=== PATIENT | female | born 1975 | race Caucasian/White ===

== ENCOUNTER 2017-03-23 13:33 | Inpatient (IN) | payer MEDICARE, MEDICAID ==
[~2017-03-23] VITALS: Ht 170.2 cm; Wt 85.8 kg
[2017-03-23] VITALS (9 sets, daily range): BP systolic 85–134; BP diastolic 61–84
[2017-03-23] MEDS ORDERED: LORazepam INJ 2 MG/ML (ATIVAN) VIAL ONE (15:20)
[2017-03-23] MEDS ORDERED: LORazepam INJ 2 MG/ML (ATIVAN) VIAL IV ONE (15:45)
[2017-03-23] MEDS ORDERED: LORazepam INJ 2 MG/ML (ATIVAN) VIAL IV PRN (16:00)
[2017-03-23] MEDS ORDERED: CATHETER FLUSH 10 ML SYR IV PRN (16:00)
[2017-03-23 16:01] LABS: AMPHETAMINE SCREEN, URINE NEGATIVE (NEGATIVE); BARBITURATE SCREEN URINE POSITIVE (NEGATIVE); BENZODIAZEPINES SCREEN URINE NEGATIVE (NEGATIVE); CANNABINOID SCREEN, URINE NEGATIVE (NEGATIVE); COCAINE SCREEN URINE NEGATIVE (NEGATIVE); METHADONE STAT NEGATIVE (NEGATIVE); METHAMPHETAMINE SCREEN URINE S NEGATIVE (NEGATIVE); OPIATE SCREEN URINE NEGATIVE (NEGATIVE); OXYCODONE STAT NEGATIVE (NEGATIVE); PROPOXYPHENE STAT NEGATIVE (NEGATIVE); TRICYCLIC ANTIDEPRESSANTS SCRE NEGATIVE (NEGATIVE)
[2017-03-23] MEDS: NS IV 1000 ML 1,000 ML IV SCH (16:04)
[2017-03-23] MEDS ORDERED: CYCL10TA9 PO (16:05)
[2017-03-23] MEDS ORDERED: MONT10TA21 PO (16:05)
[2017-03-23] MEDS ORDERED: IBUP-1779 PO (16:05)
[2017-03-23] MEDS ORDERED: TRAM50TA2 PO (16:05)
[2017-03-23] MEDS ORDERED: OMEP20TA7 PO (16:05)
[2017-03-23] MEDS ORDERED: DIVA250T2 PO (16:05)
--- NOTE | 2017-03-23 16:25 | History & Physical-Hospitalist ---
HPI History of Present Illness: HPI/Chief Complaint Mrs. Carreon is a 41-year-old white female with a long history of epilepsy who apparently had 2 seizures at home witnessed by her boyfriend. She was brought to the [facility] emergency room where she had another seizure. She apparently had gone to the emergency room a week ago with complaints of back pain. She was given tramadol. She states that she had been taking her valproic acid her only seizure medicine but on return of drug level there was unmeasurable amounts in her system. She had another seizure in the emergency room in [place] and was loaded with Dilantin. Apparently that seizure ceased but before there was recovery she had another seizure in route. She was given 2 mg of Ativan IV upon arrival here. Her seizure ceased effort unknown length of time and upon my arrival she was sedate but easily arousable answering questions appropriately moving all extremities and asking for food. She denies any illicit drug use. Urine drug screen obtained here was positive for barbiturates but no other substances. It was obtained around the same time that her IV Ativan was given still negative for benzodiazepine. She reports no other admissions for her generalized seizure disorder which she states started around the age of 4. She recently moved from [place] and had been seen several times apparently in the community health clinic in [place] but did not reportedly have a primary care provider or neurologist. [facility] were on diversion so she was transferred to our facility. Date Seen 03/23/17 Time Seen by Provider: 03:45 Attending Physician Therese Figueroa MD PCP Referring Physician Date of Admission Mar 23, 2017 at 14:45 Home Medications & Allergies Home Medications Reviewed patient Home Medication Reconciliation Form Allergies Allergies Coded Allergies codeine (Verified Allergy, Unknown, 03/23/17) Review of Systems Constitutional: no symptoms reported Respiratory: cough, phlegm (javier in color) Physical Exam Physical Exam Vital Signs Vital Sign - Last 12Hours 03/23/17 03/23/17 14:53 14:55 Temp 97.6 Pulse 109 Resp 10 B/P (MAP) 134/84 (101) Pulse Ox 98 O2 Delivery Room Air Capillary Refill : General Appearance: No Apparent Distress Eyes: Bilateral Eye PERRL Neck: Full Range of Motion, Normal Inspection, Non Tender, Supple, Carotid Bruit Respiratory: Chest Non Tender, Lungs Clear, Normal Breath Sounds, No Accessory Muscle Use, No Respiratory Distress Cardiovascular: Regular Rate, Rhythm, No Edema, No Gallop, No JVD, No Murmur, Normal Peripheral Pulses Gastrointestinal: Normal Bowel Sounds, No Organomegaly, No Pulsatile Mass, Non Tender, Soft Extremity: Normal Inspection, Normal Range of Motion, Non Tender, No Calf Tenderness, No Pedal Edema Neurologic/Psychiatric: Other (patient sedated but does arouse easily and answers questions appropriately. She moves all extremities with no sensory deficit. She does have some nystagmus no motor activity noted during the interview.) Skin: Normal Color, Warm/Dry Assessment/Plan Admission Diagnosis 1. Status epilepticus currently improved following IV Ativan. Triggering events include medication noncompliance and possible tramadol's effect on lowering seizure threshold. Patient has been loaded with Dilantin will resume her by mouth Depakote and continue to monitor in the ICU overnight with when necessary lorazepam as needed. 2. History of generalized seizure disorder/epilepsy which the patient states dates back to the age of 4. We'll be recommending neurology follow-up as an outpatient post discharge. In regards to her current metabolic workup CBC and chemistry panel were unremarkable except for mildly elevated blood sugar in the 130 range. Patient states she is a diabetic but is diet controlled on no medication. When more awake and alert will initiate 1500-calorie ADA diet. A magnesium level is pending at the time of this dictation. THERESE FIGUEROA MD Mar 23, 2017 16:25
[2017-03-23] MEDS ORDERED: DIVALPROEX 500 MG DELAYED RELEASE (DEPAKOTE) TAB PO NR (17:00)
--- NOTE | 2017-03-23 18:10 | Diagnostic Imaging Report ---
INDICATION: Productive cough. Portable chest at 05:14 p.m. FINDINGS: Heart size and pulmonary vascularity are normal. Lungs are clear. There are no effusions or pneumothoraces. IMPRESSION: Negative chest Dictated by: Dictated on workstation # [id number]
[2017-03-23 20:02] LABS: BILIRUBIN,URINE NEGATIVE (NEGATIVE); CLARITY,URINE CLEAR; COLOR,URINE YELLOW; GLUCOSE, URINE (UA) NEGATIVE (NEGATIVE); KETONES,URINE NEGATIVE (NEGATIVE); LEUKOCYTE ESTERASE ,URINE NEGATIVE (NEGATIVE); NITRITE,URINE NEGATIVE (NEGATIVE); PH,URINE 8 (5-9); PROTEIN,URINE NEGATIVE (NEGATIVE); UROBILINOGEN,URINE NORMAL (NORMAL)
[2017-03-23 20:10] LABS: BACTERIA,URINE NEGATIVE /HPF; WBC,URINE RARE /HPF
[2017-03-24] VITALS (9 sets, daily range): BP systolic 92–115; BP diastolic 61–76
[2017-03-24] MEDS: NS IV 1000 ML 1,000 ML IV SCH (01:54)
[2017-03-24] MEDS ORDERED: DIVALPROEX 500 MG DELAYED RELEASE (DEPAKOTE) TAB PO SCH (06:00)
[2017-03-24] MEDS ORDERED: DIVA500T PO (08:18)
--- NOTE | 2017-03-24 12:08 | Discharge Summary-Hospitalist ---
Diagnosis/Chief Complaint Date of Admission Mar 23, 2017 at 14:45 Date of Discharge Discharge Date: Mar 24, 2017 Admission Diagnosis 1. Status epilepticus currently improved following IV Ativan. Triggering events include medication noncompliance and possible tramadol's effect on lowering seizure threshold. Patient has been loaded with Dilantin will resume her by mouth Depakote and continue to monitor in the ICU overnight with when necessary lorazepam as needed. 2. History of generalized seizure disorder/epilepsy which the patient states dates back to the age of 4. We'll be recommending neurology follow-up as an outpatient post discharge. In regards to her current metabolic workup CBC and chemistry panel were unremarkable except for mildly elevated blood sugar in the 130 range. Patient states she is a diabetic but is diet controlled on no medication. When more awake and alert will initiate 1500-calorie ADA diet. A magnesium level is pending at the time of this dictation. Discharge Diagnosis as per admission diagnosis Discharge Summary Discharge Physical Examination Allergies: Coded Allergies: codeine (Verified Allergy, Unknown, 03/23/17) Vitals & I&Os Vital Signs Date Time Temp Pulse Resp B/P (MAP) Pulse Ox O2 Delivery O2 Flow Rate FiO2 03/24/17 08:25 96 Room Air 03/24/17 08:00 97.8 82 16 104/76 (85) Hospital Course Mrs. Carreon was admitted in status epilepticus to our intensive care unit. She received 2 mg of Ativan IV with termination of her seizure activity. Her Depakote level returned and was unmeasurable. This in addition to recent tramadol use was a likely severe her generalized seizure flare. Depakote was resumed at a higher dose than her baseline thousand milligrams twice a day. She had no further seizure activity and and was back to baseline mental status by the morning of the . Discussed the importance of medication compliance and following up with community health with ultimate neurology referral to follow her long-standing history of epilepsy she's states dates back to the age of 4. Urine drug screen was obtained and positive only for barbiturates with the patient reporting no history of illicit or prescribed barbiturate usage. She denies Fiorinal or Fioricet usage as well. She was advised to abstain from driving in the interim timing ladders or circumstances where she would be at increased risk for injury should seizure activity recur. Labs (last 24 hrs) Laboratory Tests 03/23/17 15:38: Urine Color YELLOW, Urine Clarity CLEAR, Urine pH 8, Urine Specific [place] 1.010L, Urine Protein NEGATIVE, Urine Glucose (UA) NEGATIVE, Urine Ketones NEGATIVE, Urine Nitrite NEGATIVE, Urine Bilirubin NEGATIVE, Urine Urobilinogen NORMAL, Urine Leukocyte Esterase NEGATIVE, Urine RBC (Auto) 1+H, Urine RBC 2-5H , Urine WBC RARE, Urine Crystals NONE, Urine Bacteria NEGATIVE, Urine Casts NONE , Urine Mucus NEGATIVE, Urine Culture Indicated NO, Urine Opiates Screen NEGATIVE, Urine Oxycodone Screen NEGATIVE, Urine Methadone Screen NEGATIVE, Urine Propoxyphene Screen NEGATIVE, Urine Barbiturates Screen POSITIVEH, Ur Tricyclic Antidepressants Screen NEGATIVE, Urine Phencyclidine Screen NEGATIVE, Urine Amphetamines Screen NEGATIVE, Urine Methamphetamines Screen NEGATIVE, Urine Benzodiazepines Screen NEGATIVE, Urine Cocaine Screen NEGATIVE, Urine Cannabinoids Screen NEGATIVE 03/23/17 16:04: Magnesium Level 1.9 03/24/17 03:08: Discharge Home Medications: Active Scripts Active Depakote (Divalproex Sodium) 500 Mg Tablet. 1,000 Mg PO BID 60 Days Reported Omeprazole 20 Mg Tablet.dr 20 Mg PO DAILY Cyclobenzaprine HCl 10 Mg Tablet 10 Mg PO TID PRN Ibuprofen 400 Mg Tablet 800 Mg PO Q8H PRN Singulair (Montelukast Sodium) 10 Mg Tablet 10 Mg PO HS Instructions to patient/family Please see electronic discharge instructions given to patient. Clinical Quality Measures DVT/VTE Risk/Contraindication: RFS Level Per Nursing on Admit: 1=Low/No VTE PPX THERESE FIGUEROA MD Mar 24, 2017 12:08
== END 2017-03-24 12:55 | disposition home or self-care (01) | DRG 101 ==
LOC: ICU 14:45
PROVIDERS: ADMIT Internal Medicine; ATTEND Internal Medicine
DX: G40.301 Generalized idiopathic epilepsy and epileptic syndromes, not intractable, with status epilepticus (principal)
CPT/HCPCS: 36415; 71045; 80185; 80306; 81000; 83735; 87081

== ENCOUNTER 2017-12-04 22:33 | Day surgery (SDC) | payer MEDICARE, MEDICAID ==
[~2017-12-04] VITALS: Ht 162.6 cm; Wt 84.2 kg
[~2017-12-04 22:33] MED LIST: CYCL10TA9 PO; DIVA250T2 PO; DIVA500T PO; IBUP-1779 PO; MONT10TA21 PO; OMEP20TA7 PO; TRAM50TA2 PO
[2017-12-04] MEDS ORDERED: NS IV 1000 ML 1,000 ML IV SCH (22:39)
--- NOTE | 2017-12-04 22:43 | ED Abdominal Pain ---
General Stated Complaint: ABD PAIN Source of Information: Patient Exam Limitations: No Limitations History of Present Illness Date Seen by Provider: Dec 04, 2017 Time Seen by Provider: 22:36 Initial Comments Patient presents to ER by EMS from [place], [place] with chief complaint that in the last week or so she's been having this abdominal pain in her right upper quadrant and he was diagnosed to have biliary colic with stones. She had face with oil tonight for dinner and about 9:00, 1-1/2 hours ago she started having severe unbearable pain. She has not taken anything for it. She's not having any nausea fevers or chills. She went to the ER a few days ago for the pain and was told that she did have her gallbladder out. She already has an appointment with surgeon Dr. Coppola on the . She does not think she can make it that far. She rates the pain now as a 10 out of 10 nonradiating right upper quadrant sharp , severe. Allergies and Home Medications Allergies Coded Allergies: codeine (Verified Allergy, Unknown, 03/23/17) Home Medications Cyclobenzaprine HCl 10 Mg Tablet, 10 MG PO TID PRN for SPASMS, (Reported) Divalproex Sodium 500 Mg Tablet.dr, 1,000 MG PO BID Prescribed by: THERESE FIGUEROA on 03/24/17 0818 Ibuprofen 400 Mg Tablet, 800 MG PO Q8H PRN for PAIN-MILD, (Reported) Montelukast Sodium 10 Mg Tablet, 10 MG PO HS, (Reported) Omeprazole 20 Mg Tablet.dr, 20 MG PO DAILY, (Reported) Patient Home Medication List Home Medication List Reviewed: Yes Review of Systems Review of Systems Constitutional: No chills, No diaphoresis EENTM: No Blurred Vision, No Double Vision Respiratory: Denies Cough, Denies Orthopnea Cardiovascular: Denies Chest Pain, Denies Edema Gastrointestinal: Denies Abdomen Distended; Abdominal Pain; Denies Blood Streaked Stools, Denies Constipated, Denies Diarrhea, Denies Nausea Genitourinary: Denies Burning, Denies Discharge, Denies Drainage Past Hwarwmd-Urhltv-Dvtxpt Hx Patient Social History Alcohol Use: Denies Use Recreational Drug Use: No Smoking Status: Never a Smoker Recent Hopitalizations: No Immunizations Up To Date Date of Influenza Vaccine: Nov 08, 2016 Seasonal Allergies Seasonal Allergies: Yes Past Medical History Surgeries: Yes Respiratory: No Cardiac: No Neurological: Yes Female Reproductive Disorders: Denies Sexually Transmitted Disease: No HIV/AIDS: No Genitourinary: No Gastrointestinal: Yes (Peptic Ulcer disease) Ulcer Musculoskeletal: Yes Chronic Back Pain Endocrine: Yes HEENT: No Cancer: No Psychosocial: No Integumentary: No Blood Disorders: No Physical Exam Vital Signs Vital Signs - First Documented 12/04/17 22:35 Temp 98.9 Pulse 93 Resp 17 B/P (MAP) 138/92 (107) Capillary Refill : Height/Weight/BMI Height: 5'7.00" Weight: 189lbs. 2.0oz. 85.828308yi; 25.0 BMI Method: General Appearance: WD/WN, no apparent distress HEENT: PERRL/EOMI, normal ENT inspection, pharynx normal Neck: non-tender, normal inspection Respiratory: chest non-tender, lungs clear, normal breath sounds, no respiratory distress, no accessory muscle use Cardiovascular: normal peripheral pulses, regular rate, rhythm Peripheral Pulses: 2+ Radial Pulses (R), 2+ Radial Pulses (L) Gastrointestinal: normal bowel sounds, tenderness (midepigastric) Neurologic/Psychiatric: alert, normal mood/affect, oriented x 3 Progress/Results/Core Measures Results/Orders Lab Results Laboratory Tests Test 12/04/17 22:38 12/04/17 23:02 Range/Units White Blood Count 10.8 4.3-11.0 10^3/uL Red Blood Count 4.59 4.35-5.85 10^6/uL Hemoglobin 14.3 11.5-16.0 G/DL Hematocrit 41 35-52 % Mean Corpuscular Volume 89 80-99 FL Mean Corpuscular Hemoglobin 31 25-34 PG Mean Corpuscular Hemoglobin Concent 35 32-36 G/DL Red Cell Distribution Width 13.3 10.0-14.5 % Platelet Count 247 130-400 10^3/uL Mean Platelet Volume 10.7 H 7.4-10.4 FL Neutrophils (%) (Auto) 47 42-75 % Lymphocytes (%) (Auto) 34 12-44 % Monocytes (%) (Auto) 11 0-12 % Eosinophils (%) (Auto) 7 0-10 % Basophils (%) (Auto) 1 0-10 % Neutrophils # (Auto) 5.1 1.8-7.8 X 10^3 Lymphocytes # (Auto) 3.7 1.0-4.0 X 10^3 Monocytes # (Auto) 1.2 H 0.0-1.0 X 10^3 Eosinophils # (Auto) 0.8 H 0.0-0.3 10^3/uL Basophils # (Auto) 0.1 0.0-0.1 10^3/uL Sodium Level 139 135-145 MMOL/L Potassium Level 3.9 3.6-5.0 MMOL/L Chloride Level 101 98-107 MMOL/L Carbon Dioxide Level 27 21-32 MMOL/L Anion Gap 11 5-14 MMOL/L Blood Urea Nitrogen 15 7-18 MG/DL Creatinine 1.13 0.60-1.30 MG/DL Estimat Glomerular Filtration Rate 53 BUN/Creatinine Ratio 13 Glucose Level 154 H 70-105 MG/DL Calcium Level 9.5 8.5-10.1 MG/DL Corrected Calcium 9.3 8.5-10.1 MG/DL Total Bilirubin 1.2 H 0.1-1.0 MG/DL Aspartate Amino Transf (AST/SGOT) 325 H 5-34 U/L Alanine Aminotransferase (ALT/SGPT) 695 H 0-55 U/L Alkaline Phosphatase 170 H 40-136 U/L Total Protein 7.2 6.4-8.2 GM/DL Albumin 4.2 3.2-4.5 GM/DL Lipase 136 H 8-78 U/L Serum Test, Qualitative NEGATIVE NEGATIVE Urine Color AYANNA H Urine Clarity SLIGHTLY CLOUDY Urine pH 5 5-9 Urine Specific [place] 1.025 H 1.016-1.022 Urine Protein 2+ H NEGATIVE Urine Glucose (UA) NEGATIVE NEGATIVE Urine Ketones NEGATIVE NEGATIVE Urine Nitrite NEGATIVE NEGATIVE Urine Bilirubin 1+ H NEGATIVE Urine Urobilinogen 8 H NORMAL MG/DL Urine Leukocyte Esterase 1+ H NEGATIVE Urine RBC (Auto) 2+ H NEGATIVE Urine RBC 0-2 /HPF Urine WBC 5-10 H /HPF Urine Squamous Epithelial Cells 10-25 H /HPF Urine Crystals NONE /LPF Urine Bacteria MODERATE H /HPF Urine Casts NONE /LPF Urine Mucus MODERATE H /LPF Urine Culture Indicated YES Urine Opiates Screen POSITIVE H NEGATIVE Urine Oxycodone Screen NEGATIVE NEGATIVE Urine Methadone Screen NEGATIVE NEGATIVE Urine Propoxyphene Screen NEGATIVE NEGATIVE Urine Barbiturates Screen NEGATIVE NEGATIVE Ur Tricyclic Antidepressants Screen NEGATIVE NEGATIVE Urine Phencyclidine Screen NEGATIVE NEGATIVE Urine Amphetamines Screen NEGATIVE NEGATIVE Urine Methamphetamines Screen NEGATIVE NEGATIVE Urine Benzodiazepines Screen NEGATIVE NEGATIVE Urine Cocaine Screen NEGATIVE NEGATIVE Urine Cannabinoids Screen NEGATIVE NEGATIVE My Orders Orders - ORLANDO CARRILLO Ct Abdomen/Pelvis W (12/04/17 22:39) Saline Lock/Iv-Start (12/04/17 22:39) Cbc With Automated Diff (12/04/17 22:39) Comprehensive Metabolic Panel (12/04/17 22:39) Drug Screen Stat (Urine) (12/04/17 22:39) Hcg,Qualitative Serum (12/04/17 22:39) Lipase (12/04/17 22:39) Ua Culture If Indicated (12/04/17 22:39) Saline Lock/Iv-Start (12/04/17 22:39) Ns Iv 1000 Ml (Sodium Chloride 0.9%) (12/04/17 22:39) Ketorolac Injection (Toradol Injection) (12/04/17 22:45) Iohexol Injection (Omnipaque 350 Mg/Ml 1 (12/04/17 23:30) Ns (Ivpb) (Sodium Chloride 0.9%) (12/04/17 23:30) Urine Culture (12/04/17 23:02) Fentanyl Injection (Sublimaze Injection (12/05/17 01:07) Medications Given in ED Current Medications Medications Dose Ordered Sig/Flower Route Start Time Stop Time Status Last Admin Dose Admin Iohexol 100 ml ONCE ONCE IV 12/04/17 23:30 12/05/17 00:30 DC 12/04/17 23:29 100 ML Ketorolac Tromethamine 30 mg ONCE ONCE IVP 12/04/17 22:45 12/04/17 22:46 DC 12/04/17 22:58 30 MG Sodium Chloride 80 ml ONCE ONCE IV 12/04/17 23:30 12/05/17 00:30 DC 12/04/17 23:29 80 ML Vital Signs/I&O 12/04/17 22:35 Temp 98.9 Pulse 93 Resp 17 B/P (MAP) 138/92 (107) 12/05/17 00:00 Intake Total 1000 ml Balance 1000 ml Diagnostic Imaging Diagonstic Imaging: CT (with contrast) Plain Films/CT/US/NM/MRI: abdomen, pelvis Comments Cholelithiasis. Mild intrahepatic and extrahepatic biliary dilatation of uncertain etiology. No evidence of bowel obstruction or pneumoperitoneum. No findings to suggest acute appendicitis. Small 4 mm right lower lobe pulmonary nodule. Reviewed: Reviewed [place] Study, Reviewed by Me Departure Communication (Admissions) Time/Spoke to Admitting Phy: 01:40 Discussed the case, labs and plan with Dr. Leonard and he agrees to take the patient. Time/Spoke to Consulting Phy: 01:06 Discussed the case and labs with Dr. Coppola and he wants a bilirubin to repeat in the morning. He is okay with keeping the patient here. Impression Primary Impression: Pancreatitis Qualified Codes: K85.90 - Acute pancreatitis without necrosis or infection, unspecified Additional Impression: Cholelithiasis Qualified Codes: K80.20 - Calculus of gallbladder without cholecystitis without obstruction Disposition: ADMITTED INPATIENT Condition: Stable Admissions Decision to Admit Reason: Admit from ER (General) Decision to Admit/Date: Dec 05, 2017 Time/Decision to Admit Time: 01:05 Departure-Patient Inst. Referrals: NO,LOCAL PHYSICIAN (PCP/Family) Primary Care Physician ORLANDO CARRILLO Dec 04, 2017 22:43
[2017-12-04] MEDS ORDERED: KETOROLAC 30 MG/ML VIAL IVP ONE (22:45)
[2017-12-04 22:48] LABS: BASOPHILS # (AUTO) 0.1 10^3/uL (0.0-0.1); BASOPHILS % (AUTO) 1 % (0-10); EOSINOPHILS # (AUTO) 0.8 10^3/uL (0.0-0.3); EOSINOPHILS % (AUTO) 7 % (0-10); HEMATOCRIT 41 % (35-52); HEMOGLOBIN 14.3 G/DL (11.5-16.0); LYMPHOCYTES # (AUTO) 3.7 X 10^3 (1.0-4.0); LYMPHOCYTES % (AUTO) 34 % (12-44); MEAN CORPUSCULAR HEMOGLOBIN 31 PG (25-34); MEAN CORPUSCULAR HGB CONC 35 G/DL (32-36); MEAN CORPUSCULAR VOLUME 89 FL (80-99); MEAN PLATELET VOLUME 10.7 FL (7.4-10.4); MONOCYTES # (AUTO) 1.2 X 10^3 (0.0-1.0); MONOCYTES % (AUTO) 11 % (0-12); NEUTROPHILS # (AUTO) 5.1 X 10^3 (1.8-7.8); NEUTROPHILS % (AUTO) 47 % (42-75); PLATELET COUNT 247 10^3/uL (130-400); RED BLOOD COUNT 4.59 10^6/uL (4.35-5.85); RED CELL DISTRIBUTION WIDTH 13.3 % (10.0-14.5); WHITE BLOOD COUNT 10.8 10^3/uL (4.3-11.0)
[2017-12-04 23:06] LABS: ALBUMIN 4.2 GM/DL (3.2-4.5); BILIRUBIN,TOTAL 1.2 MG/DL (0.1-1.0); CALCIUM 9.5 MG/DL (8.5-10.1); CREATININE SERUM 1.13 MG/DL (0.60-1.30); POTASSIUM 3.9 MMOL/L (3.6-5.0); TOTAL PROTEIN 7.2 GM/DL (6.4-8.2)
[2017-12-04 23:16] LABS: CLARITY,URINE SLIGHTLY CLOUDY; COLOR,URINE AMBER; GLUCOSE, URINE (UA) NEGATIVE (NEGATIVE); KETONES,URINE NEGATIVE (NEGATIVE); LEUKOCYTE ESTERASE ,URINE 1+ (NEGATIVE); NITRITE,URINE NEGATIVE (NEGATIVE); PH,URINE 5 (5-9); PROTEIN,URINE 2+ (NEGATIVE); UROBILINOGEN,URINE 8 MG/DL (NORMAL)
[2017-12-04 23:21] LABS: BILIRUBIN,URINE 1+ (NEGATIVE)
[2017-12-04 23:25] LABS: AMPHETAMINE SCREEN, URINE NEGATIVE (NEGATIVE); BARBITURATE SCREEN URINE NEGATIVE (NEGATIVE); BENZODIAZEPINES SCREEN URINE NEGATIVE (NEGATIVE); CANNABINOID SCREEN, URINE NEGATIVE (NEGATIVE); COCAINE SCREEN URINE NEGATIVE (NEGATIVE); METHADONE STAT NEGATIVE (NEGATIVE); METHAMPHETAMINE SCREEN URINE S NEGATIVE (NEGATIVE); OPIATE SCREEN URINE POSITIVE (NEGATIVE); OXYCODONE STAT NEGATIVE (NEGATIVE); PROPOXYPHENE STAT NEGATIVE (NEGATIVE); TRICYCLIC ANTIDEPRESSANTS SCRE NEGATIVE (NEGATIVE)
[2017-12-04 23:28] LABS: BACTERIA,URINE MODERATE /HPF; RBC,URINE 0-2 /HPF
[2017-12-04] MEDS ORDERED: IOHEXOL 350 MG/ML 100 ML (OMNIPAQUE 350) VIAL IV ONE (23:30)
[2017-12-04] MEDS ORDERED: NS 250 ML (IVPB) BAG IV ONE (23:30)
[2017-12-05] MEDS ORDERED: fentaNYL INJECTION 100 MCG/2 ML AMP IVP STA (01:07)
[2017-12-05] MEDS ORDERED: KETOROLAC 15 MG/ML VIAL IV PRN (02:30)
[2017-12-05] MEDS ORDERED: ONDANSETRON 4 MG/2 ML (SDV) Z0FRAN IV PRN (02:30)
[2017-12-05] MEDS ORDERED: fentaNYL INJECTION 100 MCG/2 ML AMP IV PRN (02:30)
[2017-12-05] MEDS: 1/2 NS W/KCL 20 MEQ/L 1,000 ML IV SCH ×3 (02:42→13:49)
[2017-12-05 04:24] VITALS: BP 121/67
[2017-12-05 06:47] LABS: BASOPHILS # (AUTO) 0.1 10^3/uL (0.0-0.1); BASOPHILS % (AUTO) 1 % (0-10); EOSINOPHILS # (AUTO) 0.6 10^3/uL (0.0-0.3); EOSINOPHILS % (AUTO) 6 % (0-10); HEMATOCRIT 37 % (35-52); HEMOGLOBIN 12.9 G/DL (11.5-16.0); LYMPHOCYTES # (AUTO) 3.6 X 10^3 (1.0-4.0); LYMPHOCYTES % (AUTO) 34 % (12-44); MEAN CORPUSCULAR HEMOGLOBIN 32 PG (25-34); MEAN CORPUSCULAR HGB CONC 35 G/DL (32-36); MEAN CORPUSCULAR VOLUME 89 FL (80-99); MONOCYTES # (AUTO) 1.4 X 10^3 (0.0-1.0); MONOCYTES % (AUTO) 14 % (0-12); NEUTROPHILS # (AUTO) 4.9 X 10^3 (1.8-7.8); NEUTROPHILS % (AUTO) 47 % (42-75); PLATELET COUNT 202 10^3/uL (130-400); WHITE BLOOD COUNT 10.6 10^3/uL (4.3-11.0)
[2017-12-05 07:08] LABS: ALANINE AMINOTRANSFERASE 646 U/L (0-55); ALBUMIN 3.6 GM/DL (3.2-4.5); ALKALINE PHOSPHATASE 152 U/L (40-136); BILIRUBIN,TOTAL 1.7 MG/DL (0.1-1.0); BUN/CREATININE RATIO 18; CALCIUM 8.5 MG/DL (8.5-10.1); CARBON DIOXIDE 23 MMOL/L (21-32); CHLORIDE 107 MMOL/L (98-107); CREATININE SERUM 0.79 MG/DL (0.60-1.30); GFR ESTIMATED > 60; GLUCOSE 95 MG/DL (70-105); POTASSIUM 4.1 MMOL/L (3.6-5.0); SODIUM 137 MMOL/L (135-145)
--- NOTE | 2017-12-05 07:40 | Diagnostic Imaging Report ---
PROCEDURE: CT abdomen and pelvis with contrast. TECHNIQUE: Multiple contiguous axial images were obtained through the abdomen and pelvis after administration of intravenous contrast. INDICATION: Generalized abdominal pain. FINDINGS: There is a 4 mm noncalcified nodule posteriorly in the right lower lobe. Liver appears normal. Gallbladder is mildly distended. There are gallstones present. Gallbladder wall is mildly thickened. The common bile duct is dilated measuring 10 mm. Pancreatic duct is slightly prominent. No definite common duct stone or pancreatic masses demonstrated. The spleen is normal. The adrenal glands are normal. The kidneys appear normal. There is normal enhancement of the abdominal organs and vessels. The stomach and small bowel are not distended. Colon shows normal stool and gas pattern. The appendix is not distended. There is no evidence of diverticulitis. No evidence of constipation. Uterus is not enlarged. Bladder is empty. There are no pelvic masses. There is no free air or free fluid. IMPRESSION: 1. Cholelithiasis with thickening of the gallbladder wall and dilated common bile duct all suspicious for acute cholecystitis with the common duct obstruction. Would consider ERCP or MRCP for further evaluation. Dictated by: Dictated on workstation # [id number]
[2017-12-05] MEDS ORDERED: FLU QUADRIvalent (5+ YOA) 2018-2019 (AFLURIA) 0.5 ML IM ONE (07:45)
[2017-12-05 08:00] VITALS: BP 134/74
--- NOTE | 2017-12-05 08:45 | Consultation ---
History of Present Illness History of Present Illness Patient Consulted On(federico/time) 12/05/17 08:39 Date Seen by Provider: Dec 05, 2017 Time Seen by Provider: 08:39 History of Present Illness Consulted by Dr. Leonard for RUQ pain 42 year old female with Hx of seizures who is on depikote was admitted from the ED last night for RUQ that pt states started yesterday and gradually worsened throughout the day. Pt states the pain is intermittent sharp/stabbing pain that is in her RUQ that does not radiate anywhere. Pt states nothing makes the pain better and nothing makes the pain worse. Pt states she tried sitting in the hot tub last night but that did not help. Pt denies fever, chills, CP, SOB, N/V/D, constipation. Pt has had multiple missed apointments and been seen at multiple hospitals for this problem. Looked at ct scan showing slight dilated cbd and thickened gallbladder with stones. She has had previous u/s demonstrating stones. Allergies and Home Medications Allergies Coded Allergies: codeine (Verified Allergy, Unknown, 03/23/17) tramadol (Verified Allergy, Unknown, 12/05/17) Home Medications Cyclobenzaprine HCl 10 Mg Tablet, 10 MG PO TID PRN for SPASMS, (Reported) Divalproex Sodium 500 Mg Tablet.dr, 1,000 MG PO BID Prescribed by: THERESE FIGUEROA on 03/24/1718 Ibuprofen 400 Mg Tablet, 800 MG PO Q8H PRN for PAIN-MILD, (Reported) Montelukast Sodium 10 Mg Tablet, 10 MG PO HS, (Reported) Omeprazole 20 Mg Tablet.dr, 20 MG PO DAILY, (Reported) Patient Home Medication List Home Medication List Reviewed: Yes Past Taojlgd-Pgqnyp-Ecbpjf Hx Patient Social History Alcohol Use: Denies Use Recreational Drug Use: No Smoking Status: Never a Smoker Recent Foreign Travel: No Contact w/Someone Who Travel: No Recent Infectious Disease Expo: No Recent Hopitalizations: No Physical Abuse Screen: No Sexual Abuse: No Immunizations Up To Date Tetanus Booster (TDap): Unknown Date of Influenza Vaccine: Nov 08, 2016 Seasonal Allergies Seasonal Allergies: No Surgeries History of Surgeries: Yes (back surgery) Respiratory History of Respiratory Disorde: No Cardiovascular History of Cardiac Disorders: No Neurological History of Neurological Disord: Yes Neurological Disorders: Seizure Disorder Reproductive System Sexually Transmitted Disease: No HIV/AIDS: No Female Reproductive Disorders: Denies Genitourinary History of Genitourinary Disor: No Gastrointestinal History of Gastrointestinal Di: Yes (Peptic Ulcer disease, biliary colic with stones) Gastrointestinal Disorders: Ulcer Musculoskeletal History of Musculoskeletal Dis: No Musculoskeletal Disorders: Chronic Back Pain Endocrine History of Endocrine Disorders: No HEENT History of HEENT Disorders: No Cancer History of Cancer: No Psychosocial History of Psychiatric Problem: No Integumentary History of Skin or Integumenta: No Blood Transfusions History of Blood Disorders: No Family Medical History Significant Family History: No Pertinent Family Hx Review of Systems-General Constitutional: no symptoms reported EENTM: no symptoms reported Respiratory: no symptoms reported Cardiovascular: no symptoms reported Gastrointestinal: RUQ, see HPI Musculoskeletal: no symptoms reported Skin: no symptoms reported Physical Exam-General Problems Physical Exam Vital Signs Vital Signs - First Documented 12/04/17 12/05/17 12/05/17 22:35 01:45 04:24 Temp 98.9 Pulse 93 Resp 17 B/P (MAP) 138/92 (107) Pulse Ox 98 O2 Delivery Room Air Capillary Refill : Less Than 3 Seconds General Appearance: no apparent distress Eyes: Bilateral Eye EOMI HEENT: PERRL/EOMI Neck: full range of motion, supple Respiratory: normal breath sounds, no respiratory distress, no accessory muscle use Cardiovascular: regular rate, rhythm, no edema Gastrointestinal: soft, tenderness (ruq) Rectal: deferred Back: normal inspection Extremities: normal range of motion Neurologic/Psychiatric: validation intern II-XII nml as tested, no motor/sensory deficits, alert, normal mood/affect, oriented x 3 Skin: normal color, warm/dry Data Review Labs Laboratory Tests 12/04/17 22:38: White Blood Count 10.8, Red Blood Count 4.59, Hemoglobin 14.3, Hematocrit 41, Mean Corpuscular Volume 89, Mean Corpuscular Hemoglobin 31, Mean Corpuscular Hemoglobin Concent 35, Red Cell Distribution Width 13.3, Platelet Count 247, Mean Platelet Volume 10.7H, Neutrophils (%) (Auto) 47, Lymphocytes (%) (Auto) 34 , Monocytes (%) (Auto) 11, Eosinophils (%) (Auto) 7, Basophils (%) (Auto) 1, Neutrophils # (Auto) 5.1, Lymphocytes # (Auto) 3.7, Monocytes # (Auto) 1.2H, Eosinophils # (Auto) 0.8H, Basophils # (Auto) 0.1, Sodium Level 139, Potassium Level 3.9, Chloride Level 101, Carbon Dioxide Level 27, Anion Gap 11, Blood Urea Nitrogen 15, Creatinine 1.13, Estimat Glomerular Filtration Rate 53, BUN/ Creatinine Ratio 13, Glucose Level 154H, Calcium Level 9.5, Corrected Calcium 9.3, Total Bilirubin 1.2H, Aspartate Amino Transf (AST/SGOT) 325H, Alanine Aminotransferase (ALT/SGPT) 695H, Alkaline Phosphatase 170H, Total Protein 7.2, Albumin 4.2, Lipase 136H, Serum Test, Qualitative NEGATIVE 12/04/17 23:02: Urine Color AMBERH, Urine Clarity SLIGHTLY CLOUDY, Urine pH 5, Urine Specific [place] 1.025H, Urine Protein 2+H, Urine Glucose (UA) NEGATIVE, Urine Ketones NEGATIVE, Urine Nitrite NEGATIVE, Urine Bilirubin 1+H, Urine Urobilinogen 8H, Urine Leukocyte Esterase 1+H, Urine RBC (Auto) 2+H, Urine RBC 0-2, Urine WBC 5- 10H, Urine Squamous Epithelial Cells 10-25H, Urine Crystals NONE, Urine Bacteria MODERATEH, Urine Casts NONE, Urine Mucus MODERATEH, Urine Culture Indicated YES, Urine Opiates Screen POSITIVEH, Urine Oxycodone Screen NEGATIVE, Urine Methadone Screen NEGATIVE, Urine Propoxyphene Screen NEGATIVE, Urine Barbiturates Screen NEGATIVE, Ur Tricyclic Antidepressants Screen NEGATIVE, Urine Phencyclidine Screen NEGATIVE, Urine Amphetamines Screen NEGATIVE, Urine Methamphetamines Screen NEGATIVE, Urine Benzodiazepines Screen NEGATIVE, Urine Cocaine Screen NEGATIVE, Urine Cannabinoids Screen NEGATIVE 12/05/17 06:15: White Blood Count 10.6, Red Blood Count 4.10L, Hemoglobin 12.9, Hematocrit 37, Mean Corpuscular Volume 89, Mean Corpuscular Hemoglobin 32, Mean Corpuscular Hemoglobin Concent 35, Red Cell Distribution Width 13.0, Platelet Count 202, Mean Platelet Volume 11.0H, Neutrophils (%) (Auto) 47, Lymphocytes (%) (Auto) 34 , Monocytes (%) (Auto) 14H, Eosinophils (%) (Auto) 6, Basophils (%) (Auto) 1, Neutrophils # (Auto) 4.9, Lymphocytes # (Auto) 3.6, Monocytes # (Auto) 1.4H, Eosinophils # (Auto) 0.6H, Basophils # (Auto) 0.1, Sodium Level 137, Potassium Level 4.1, Chloride Level 107, Carbon Dioxide Level 23, Anion Gap 7, Blood Urea Nitrogen 14, Creatinine 0.79, Estimat Glomerular Filtration Rate > 60, BUN/ Creatinine Ratio 18, Glucose Level 95, Calcium Level 8.5, Corrected Calcium 8.8 , Total Bilirubin 1.7H, Aspartate Amino Transf (AST/SGOT) 324H, Alanine Aminotransferase (ALT/SGPT) 646#H, Alkaline Phosphatase 152H, Total Protein 6.0L , Albumin 3.6 Radiology IMPRESSION: 1. Cholelithiasis with thickening of the gallbladder wall and dilated common bile duct all suspicious for acute cholecystitis with the common duct obstruction. Would consider ERCP or MRCP for further evaluation. Assessment/Plan Assessment/Plan Assessment/Plan Acute cholecystitis Cholelithiasis Discussed risks and benefits of laparoscopic cholecystectomy with intraoperative cholangiogram and all other indicated procedures patient understands risks and benefits and wishes to proceed. patient to or NPO Physician Assessment Physician Assessment Scribed by John Matthews MS3 for Dr. Larsen Clinical Quality Measures DVT/VTE Risk/Contraindication: Risk Factor Score Per Nursin RFS Level Per Nursing on Admit: 2=Moderate SABINE MATTHEWS MEDICAL STUDENT Dec 05, 2017 08:45 KEITH LARSEN DO Dec 05, 2017 11:31
[2017-12-05] MEDS ORDERED: FAMOTIDINE 20MG/2ML IV (PEPCID) IVP SCH (09:00)
[2017-12-05] MEDS ORDERED: ceFAZolin 2 GM IV Premixed 50 ML IV ONE (09:30)
[2017-12-05] MEDS ORDERED: ROCURONIUM 10 MG/ML 5 ML SYRINGE IV ONE (11:42)
[2017-12-05] MEDS ORDERED: ONDANSETRON 4 MG/2 ML (SDV) Z0FRAN ONE (11:42)
[2017-12-05] MEDS ORDERED: proPOfol 200 MG/20 ML (DIPRIVAN) VIAL IV ONE (11:42)
[2017-12-05] MEDS ORDERED: fentaNYL INJECTION 100 MCG/2 ML AMP ONE ×2 (11:42→13:19)
[2017-12-05] MEDS ORDERED: LIDOCAINE PF 2% 5 ML (XYLOCAINE) VIAL ONE (11:42)
[2017-12-05] MEDS ORDERED: LACTATED RINGERS 1,000 ML IV ONE (11:42)
[2017-12-05] MEDS ORDERED: MIDAZOLAM 2 MG/2 ML (VERSED) VIAL ONE (11:43)
[2017-12-05] MEDS ORDERED: BUPIVACAINE 0.5% 30 ML (SENSORCAINE) VIAL ONE (11:43)
[2017-12-05] MEDS ORDERED: LIDOCAINE 1% INJ 20 ML 20 ML VIAL ONE (11:44)
[2017-12-05] MEDS ORDERED: SEVOFLURANE (ULTANE) 15 ML INHAL SOLN ONE ×7 (11:52→13:27)
[2017-12-05] MEDS ORDERED: DEXAMETHASONE 10 MG/ML (DECADRON) 1 ML VIAL ONE (11:52)
[2017-12-05] MEDS: LACTATED RINGERS 1,000 ML IV PRN ×2 (11:58→12:40)
[2017-12-05] MEDS ORDERED: ceFAZolin 1,000 MG/10 ML (ANCEF) VIAL ONE (12:29)
[2017-12-05] MEDS ORDERED: NEOSTIGMINE 1 MG/ML 5 ML SYRINGE ONE (13:29)
[2017-12-05] MEDS ORDERED: GLYCOPYRROLATE 0.2 MG/ML (ROBINUL) 2 ML VIAL ONE (13:29)
[2017-12-05] MEDS ORDERED: fentaNYL INJECTION 100 MCG/2 ML AMP IVP ONE (14:00)
[2017-12-05] MEDS ORDERED: PROMETHAZINE INJ 25 MG/ML (PHENERGAN) AMP IVP ONE (14:00)
[2017-12-05] MEDS ORDERED: MEPERIDINE (DEMEROL) INJ 50 MG/ML IVP ONE (14:00)
[2017-12-05] MEDS ORDERED: ONDANSETRON 4 MG/2 ML (SDV) Z0FRAN IVP PRN (14:00)
--- NOTE | 2017-12-05 14:16 | Diagnostic Imaging Report ---
INDICATION: Abdominal pain. Undergoing cholecystectomy. TECHNIQUE: Multiple intraprocedural cholangiographic images. CORRELATION STUDY: None FINDINGS: There is cannulation of the extrahepatic biliary tree injection contrast. There is filling of the common bile duct to the most distal aspect. There is no appreciable migration of contrast into the duodenum on this study. There is reflux of contrast into the central intrahepatic branches. The biliary tree does not appear to be abnormally dilated. Fluoroscopy time: 31 seconds. IMPRESSION: 1. Intraoperative cholangiogram demonstrates relatively nondilated biliary tree. However, there is abrupt termination of contrast with no flow of contrast from the distal common bile duct into the duodenum. This does raise concern for distal common bile duct obstruction. Correlation with intraoperative findings recommended. Dictated by: Dictated on workstation # [id number]
[2017-12-05 15:00] VITALS: BP 146/81
[2017-12-05 16:00] VITALS: BP 140/78
--- NOTE | 2017-12-05 20:45 | Progress Note-Post Operative ---
Post-Operative Progess Note Surgeon (s)/Land Surveying Party Chief (s) Surgeon KEITH LARSEN DO Land Surveying Party Chief: Dr. Mata Pre-Operative Diagnosis cholelithiasis, cholecystitis Post-Operative Diagnosis cholelithiasis, cholecystitis, choledocholithiasis Procedure & Operative Findings Date of Procedure 12/05/17 Procedure Performed/Findings lap guille c ioc Anesthesia Type gen Estimated Blood Loss Estimated blood loss (mL): min Specimens/Packing Specimens Removed gallbladder Packing: dictation #[id number] KEITH LARSEN DO Dec 05, 2017 20:45
--- NOTE | 2017-12-05 21:07 | OPERATIVE REPORT ---
DATE OF SERVICE: 12/05/2017 PREOPERATIVE DIAGNOSES: Cholelithiasis, cholecystitis. POSTOPERATIVE DIAGNOSES: Cholelithiasis, cholecystitis, choledocholithiasis. PROCEDURE: Laparoscopic cholecystectomy with intraoperative cholangiogram. SURGEON: Keith Coppola DO BEDSPRING ASSEMBLER: Dr. Mata, assisted in retraction, dissection and closure. ANESTHESIA: General. ESTIMATED BLOOD LOSS: Minimal. COMPLICATIONS: None. INDICATIONS: The patient is a 42-year-old female who was found to have cholelithiasis and has been having symptoms for at least a month. The patient has worsening pain and went to the Emergency Department last night and was found to have a CT scan consistent with cholelithiasis, cholecystitis. She has slight elevated bilirubin. She understands risks and benefits of procedure and wished to proceed with procedure. Consent was signed and on the chart. DESCRIPTION OF PROCEDURE: The patient was taken to the operating suite. She was prepped and draped in sterile fashion. Timeout was performed. John technique was used to enter the abdomen just above the umbilicus. Once the abdomen was entered, a 0 Vicryl was placed in a [id number] fashion at the fascia for closure at the end of the case. A balloon trocar was inserted in the abdomen. Pneumoperitoneum was achieved. Under direct visualization of the laparoscope, a 5 mm trocar was then placed in the subxiphoid region and two 5 mm trocars were placed in the right upper quadrant. Gallbladder was grasped and elevated. There were some adhesions to the gallbladder, which were taken down both bluntly and with some cautery. The cystic duct and cystic artery were identified. The cystic artery was dissected around the clips placed on the proximal and distal portion and this was then transected. The cystic duct was extremely dilated. Also, I had more special attention to make sure going directly into the gallbladder. A hook cautery was used to mobilize the neck of the gallbladder mobilizing more identifying the cystic duct going into the gallbladder. The duct was then partially transected and an arrow catheter was inserted. A grasper was placed on the gallbladder side obstructing the lumen. Cholangiogram was attempted to be performed. However, there was a stone in the cystic duct, so the Arrow catheter was removed and the stone was removed. The catheter was replaced and the balloon was inflated on the Arrow catheter and a cholangiogram was then performed. There were filling defects on the cholangiogram and contrast did not make its way into the duodenum consistent with a common bile duct obstruction distally. The Arrow catheter was removed. The cystic duct was then completely transected and a loop PDS was then placed around the cystic duct and then secured. This was then cut and hook cautery was used to dissect the gallbladder from the gallbladder fossa achieving hemostasis. The gallbladder was then placed in an Endobag and removed through the 12 mm trocar site. Copious amounts of irrigation was used to irrigate the abdomen and suction it out. Again, hemostasis had been achieved. The abdomen was then desufflated. The trocars were removed. The 0 Vicryl that was previously placed in the fascia of the 12 mm trocar site was then tied. The abdomen was then washed and dried and a Monocryl was used to close the skin in a subcuticular fashion. The Skin Affix was placed over the incisions. The patient tolerated procedure well without any complications. She was taken to recovery room in stable condition. The patient was then arranged transfer for ERCP with Rekha Lugo due to the common bile duct obstruction. Job ID: [id number] DocumentID: [id number] Dictated Date: 12/05/2017 20:46:43 Mortar Worker Date: 12/05/2017 21:06:54 Dictated By: KEITH COPPOLA DO
--- NOTE | 2017-12-06 08:55 | Anesthesia-General Post-Op ---
General Patient Condition Mental Status/LOC: Same as Preop Cardiovascular: Satisfactory Nausea/Vomiting: Absent Respiratory: Satisfactory Pain: Controlled Complications: Absent Post Op Complications Complications None Follow Up Care/Instructions Patient Instructions None needed. Anesthesia/Patient Condition Patient Condition Patient is doing well, no complaints, stable vital signs, no apparent adverse anesthesia problems. No complications reported per nursing. DALLAS SOLORIO CRNA Dec 06, 2017 08:55
== END 2017-12-05 16:00 | disposition short-term general hospital (02) ==
LOC: EDUNIT# 22:33 → ER 22:36 → SDC 22:37 → 4TH 22:37 → UNDOADMIN 12-05 01:10 → UNDODISIN 12-05 16:00 → SDC 12-05 16:00 → 4TH 12-06 04:19
PROVIDERS: ATTEND Internal Medicine
DX: K80.60 Calculus of gallbladder and bile duct with cholecystitis, unspecified, without obstruction (principal); R56.9 Unspecified convulsions; K21.9 Gastro-esophageal reflux disease without esophagitis; R82.90 Unspecified abnormal findings in urine; Z79.899 Other long term (current) drug therapy
CPT/HCPCS: 36415; 74177; 80053; 80306; 81000; 83690; 84703; 85025; 87081; 87088; 88304; 90471; 90686; 96361; 96374; 96375